=== PATIENT | female | born 1995 | race African-American/Black ===

== ENCOUNTER 2018-10-07 10:13 | Emergency (ER) | payer OTHER ==
[~2018-10-07] VITALS: Ht 160 cm; Wt 72.3 kg
[2018-10-07] MEDS ORDERED: bcp PO (10:27)
[2018-10-07] MEDS ORDERED: IBUP80TA PO (11:52)
[2018-10-07 12:00] VITALS: BP 145/82
== END 2018-10-07 12:02 | disposition home or self-care (01) ==
LOC: M ED 10:13
DX: S39.011A Strain of muscle, fascia and tendon of abdomen, initial encounter (principal); E86.0 Dehydration; X58.XXXA Exposure to other specified factors, initial encounter; Y92.9 Unspecified place or not applicable; Y93.B2 Activity, push-ups, pull-ups, sit-ups; Y99.9 Unspecified external cause status; Z79.3 Long term (current) use of hormonal contraceptives

== ENCOUNTER 2019-04-21 10:46 | Emergency (ER) | payer OTHER ==
[~2019-04-21] VITALS: Ht 160 cm; Wt 74.6 kg
[~2019-04-21 10:46] MED LIST: IBUP80TA PO; bcp PO
[2019-04-21] MEDS ORDERED: FLAG500T PO (11:43)
[2019-04-21 12:27] VITALS: BP 140/100
[2019-04-21 12:58] LABS: CHLAMYDIA DNA AMPLIFICATION NEGATIVE (NEGATIVE); GC DNA AMPLIFICATION NEGATIVE (NEGATIVE)
== END 2019-04-21 12:46 | disposition home or self-care (01) ==
LOC: M ED 10:46
DX: N89.8 Other specified noninflammatory disorders of vagina (principal); L29.2 Pruritus vulvae

== ENCOUNTER 2019-08-05 12:53 | Emergency (ER) | payer OTHER ==
[~2019-08-05] VITALS: Ht 160 cm; Wt 73.6 kg
[~2019-08-05 12:53] MED LIST changes: +FLAG500T PO
[2019-08-05 12:54] VITALS: BP 138/103
[2019-08-05 15:35] LABS: CHLAMYDIA DNA AMPLIFICATION NEGATIVE (NEGATIVE); GC DNA AMPLIFICATION NEGATIVE (NEGATIVE)
[2019-08-05] MEDS ORDERED: FLAG500T PO (16:04)
[2019-08-06 10:52] LABS: HEPATITIS B SURFACE ANTIBODY POSITIVE (POSITIVE); HEPATITIS B SURFACE ANTIGEN NEGATIVE (NEGATIVE); HEPATITIS C VIRUS ABY INDEX 0.1 INDEX (<0.8); HIV 1&2 SCREEN CENTAUR NEGATIVE (NEGATIVE)
== END 2019-08-05 14:10 | disposition home or self-care (01) ==
LOC: M ED 12:53
DX: Z20.2 Contact with and (suspected) exposure to infections with a predominantly sexual mode of transmission (principal); N76.0 Acute vaginitis; F17.210 Nicotine dependence, cigarettes, uncomplicated

== ENCOUNTER 2019-10-26 10:58 | Emergency (ER) | payer OTHER ==
[~2019-10-26] VITALS: Ht 160 cm; Wt 75.1 kg
[2019-10-26 12:04] LABS: HEMATOCRIT 34.4 % (36.0-47.0); HEMOGLOBIN 10.6 g/dl (12.0-15.5); MEAN CORPUSCULAR HEMOGLOBIN 22.5 pg (27.0-33.0); MEAN CORPUSCULAR HGB CONC 30.8 g/dl (32.0-36.5); MEAN CORPUSCULAR VOLUME 72.9 fl (80.0-96.0); PLATELET COUNT, AUTOMATED 297 10^3/uL (150-450); RED BLOOD COUNT 4.72 10^6/uL (4.00-5.40); WHITE BLOOD COUNT 3.5 10^3/uL (4.0-10.0)
[2019-10-26] MEDS ORDERED: FERR325T3 PO (12:15)
[2019-10-26] MEDS ORDERED: IBUP-1022 PO (12:15)
[2019-10-26 12:19] VITALS: BP 158/98
--- NOTE | 2019-10-26 12:25 | REPVR ---
PROCEDURE INFORMATION: Exam: US Nonobstetric Pelvis; Complete Exam date and time: 10/26/2019 11:47 AM Age: 24 years old Clinical indication: Menstruation abnormalities; Excessive menstruation; With irregular cycle; Additional info: Irregular vaginal bleeding TECHNIQUE: Imaging protocol: Transabdominal pelvic nonobstetric ultrasound. Complete exam. Real time ultrasound with image documentation. COMPARISON: No relevant prior studies available. FINDINGS: Uterus/cervix: The uterus is anteverted, normal in size and echotexture. The uterus measures 7.3 x 3.5 x 5.4 cm in dimensions. No discrete fibroid or focal mass is seen. The endometrium measures 11 millimeters in thickness. Right adnexa: The right ovary is normal in size and echotexture. 3.4 x 1.7 x 3.1 cms. Normal arterial flow is seen in the right ovary without evidence for torsion. Left adnexa: The left ovary is normal in size and echotexture. 4.1 x 2.4 x 1.9 cms.Normal arterial flow is seen in the left ovary without evidence for torsion. Intraperitoneal space: No free fluid is seen in the pelvis. Bladder: Normal. IMPRESSION: No discrete fibroid, adnexal masses or free fluid is seen. Electronically signed by: Terrence Kelly On 10/26/2019 12:25:25 PM
[2019-10-26 12:51] LABS: BLOOD UREA NITROGEN 12 MG/DL (7-18); CALCIUM LEVEL 8.9 MG/DL (8.5-10.1); CARBON DIOXIDE LEVEL 27 MEQ/L (21-32); CHLORIDE LEVEL 109 MEQ/L (98-107); CREATININE FOR GFR 0.95 MG/DL (0.55-1.30); GLOMERULAR FILTRATION RATE > 60.0 (>60); GLUCOSE, FASTING 79 MG/DL (70-100); POTASSIUM SERUM 3.9 MEQ/L (3.5-5.1); SODIUM LEVEL 138 MEQ/L (136-145)
== END 2019-10-26 13:00 | disposition home or self-care (01) ==
LOC: M ED 10:58
DX: N93.9 Abnormal uterine and vaginal bleeding, unspecified (principal)

== ENCOUNTER 2020-01-04 01:56 | Emergency (ER) | payer OTHER ==
[~2020-01-04] VITALS: Ht 160 cm; Wt 74.2 kg
[~2020-01-04 01:56] MED LIST changes: +FERR325T3 PO; +IBUP-1022 PO
[2020-01-04] MEDS ORDERED: MIRE1IUD VG (02:13)
[2020-01-04] MEDS ORDERED: IBUPROFEN 600MG TAB PO ONE (03:30)
[2020-01-04 04:00] VITALS: BP 173/109
[2020-01-04] MEDS ORDERED: dexameTHASONE 20MG/5ML VIAL (J1100 PER 1MG) IM ONE (04:15)
[2020-01-04 04:17] LABS: MONO SCRN NEGATIVE (NEGATIVE)
[2020-01-04] MEDS ORDERED: CHLO0.5L PO (04:18)
== END 2020-01-04 04:35 | disposition home or self-care (01) ==
LOC: M ED 01:56
DX: J06.9 Acute upper respiratory infection, unspecified (principal); Z79.899 Other long term (current) drug therapy; Z86.19 Personal history of other infectious and parasitic diseases
CPT/HCPCS: 86308; 87880; 96372; 99284; J1100; U0003

== ENCOUNTER 2020-07-12 00:14 | Emergency (ER) | payer OTHER ==
[~2020-07-12] VITALS: Ht 160 cm; Wt 74.5 kg
[~2020-07-12 00:14] MED LIST changes: +CHLO0.5L PO; +MIRE1IUD VG
[2020-07-12 01:01] LABS: HEMATOCRIT 38.6 % (36.0-47.0); MEAN CORPUSCULAR HGB CONC 31.1 g/dl (32.0-36.5); MEAN CORPUSCULAR VOLUME 73.9 fl (80.0-96.0); PLATELET COUNT, AUTOMATED 363 10^3/uL (150-450); RED BLOOD COUNT 5.22 10^6/uL (4.00-5.40); WHITE BLOOD COUNT 4.9 10^3/uL (4.0-10.0)
[2020-07-12 01:26] LABS: AMPHETAMINES LEVEL URINE NEGATIVE (NEGATIVE); BARBITURATES URINE NEGATIVE (NEGATIVE); BENZODIAZEPINES URINE NEGATIVE (NEGATIVE); CANNABINOIDS URINE NEGATIVE (NEGATIVE); COCAINE METABOLITE URINE NEGATIVE (NEGATIVE); METHADONE URINE NEGATIVE (NEGATIVE); OPIATES URINE NEGATIVE (NEGATIVE); PHENCYCLIDINE URINE NEGATIVE (NEGATIVE)
[2020-07-12 01:30] LABS: HCG, SERUM QUALITATIVE NEGATIVE (NEGATIVE)
[2020-07-12 01:35] LABS: ACETAMINOPHEN LEVEL < 2.0 UG/ML (10.0-30.0); ALBUMIN 4.4 GM/DL (3.2-5.2); ALT/SGPT 17 U/L (12-78); BILIRUBIN,DIRECT 0.1 MG/DL (0.0-0.2); BILIRUBIN,TOTAL 0.6 MG/DL (0.2-1.0); BLOOD UREA NITROGEN 11 MG/DL (7-18); CALCIUM LEVEL 9.1 MG/DL (8.5-10.1); CARBON DIOXIDE LEVEL 28 MEQ/L (21-32); CHLORIDE LEVEL 110 MEQ/L (98-107); CREATININE FOR GFR 0.99 MG/DL (0.55-1.30); ETHYL ALCOHOL (ETHANOL) 0.192 % (0.000-0.010); GLOMERULAR FILTRATION RATE > 60.0 (>60); GLUCOSE, FASTING 89 MG/DL (70-100); POTASSIUM SERUM 3.7 MEQ/L (3.5-5.1); SALICYLATE LEVEL < 1.7 MG/DL (5.0-30.0); SODIUM LEVEL 143 MEQ/L (136-145); TOTAL PROTEIN 7.8 GM/DL (6.4-8.2)
[2020-07-12 05:56] VITALS: BP 164/105
== END 2020-07-12 05:58 | disposition home or self-care (01) ==
LOC: M ED 00:14
DX: F10.129 Alcohol abuse with intoxication, unspecified (principal); F17.200 Nicotine dependence, unspecified, uncomplicated; Z79.3 Long term (current) use of hormonal contraceptives